=== PATIENT | female | born 1940 | race Caucasian/White ===

== ENCOUNTER → 2016-07-26 | Outpatient (CLI) | payer MEDICARE, OTHER ==
[~2016-07-26] MED LIST: 8 HOUR PAIN RE650 M1 PO; AMIODARONE HCL200 MG PO; ARICEPT5 MG PO; ASPIRIN EC81 MG PO; COLACE100 MG PO; EFFEXOR XR150 MG PO; FLONASE 50 MCG/16 GM NOSE; ISORDIL20 MG PO; LASIX20 MG PO; LEVOTHROID (SY50 MCG PO; LISINOPRIL10 MG PO; LOPRESSOR25 MG PO; MACROBID100 MG PO; MILK OF MA400 MG/5 M PO; NEURONTIN100 MG PO; NITROSTAT0.4 MG SL; NORVASC2.5 MG PO; REFRESH PLUS1 EACH OPHTH; THERA-M1 EACH PO; TYLENOL EXTRA500 MG PO; VALTREX (NON-F500 MG PO; VESICARE5 MG PO; VITAMIN D-32000 UNI1 PO; ZOCOR40 MG PO; ZYLOPRIM100 MG PO; ZYRTEC10 MG PO
== END | disposition disaster alternative care site (69) ==
LOC: GRAD 09:33
DX: Z47.89 Encounter for other orthopedic aftercare (principal); Z98.1 Arthrodesis status